=== PATIENT | female | born 1970 | race Asian ===

== ENCOUNTER 2018-06-22 13:16 | Outpatient (CLI) | payer OTHER ==
--- NOTE | 2018-06-22 15:57 | ULT ---
RIGHT BREAST ULTRASOUND: 06/22/18 HISTORY: Palpable mass in the right breast. FINDINGS: Correlation is made with mammogram same date. There is a 2.8 x 2.2 x 4 cm cyst at the 2 o'clock position, 3 cm from the nipple corresponding to the mammographic finding and palpable abnormality. IMPRESSION: BIRADS 2: Benign Finding(s) Routine annual screening mammography (for women over age 40). POS: OFF
--- NOTE | 2018-06-23 09:01 | MMO ---
MAMMOGRAM FINDINGS: There is a mass in the right breast correswponding to palpable abnormality. Ultrasound of the palpable finding was shown to be a 4 cm cyst (2:00). There are no suspicious masses, calcifications or areas of architectural distortion. IMPRESSION: FINDING IN THE RIGHT BREAST IS BENIGN. A ROUTINE FOLLOW-UP MAMMOGRAM IN 1 YEAR IS RECOMMENDED. ACR BI-RADS Category 2 - Benign finding
== END 2018-06-22 13:17 | disposition home or self-care (01) ==
LOC: BICMAMMO 13:16
PROVIDERS: ATTEND Advanced Practice Midwife
DX: N64.4 Mastodynia (principal); N63.12 Unspecified lump in the right breast, upper inner quadrant
CPT/HCPCS: 77066; G0279

== ENCOUNTER 2019-09-06 10:02 | Outpatient (CLI) | payer OTHER ==
--- NOTE | 2019-09-06 10:53 | MMO ---
Bilateral MAMMO Bilat Diag [facility]. CLINICAL HISTORY: Patient is 49 years old and is seen for diagnostic exam and lump or thickening in the right breast. The patient has no family history of breast cancer. The patient has no personal history of cancer. VIEWS: The views performed were: bilateral craniocaudal with tomosynthesis; bilateral mediolateral oblique with tomosynthesis; and bilateral mediolateral with tomosynthesis. FILMS COMPARED: The present examination has been compared to prior imaging studies performed at [facility] on 06/22/2018 and 09/06/2019. This study has been interpreted with the assistance of computer-aided detection. MAMMOGRAM FINDINGS: The breasts are extremely dense, which may lower the sensitivity of mammography. There are multiple similar oval masses with obscured margins seen in both breasts. The large right cyst seen previously is smaller/resolved. Simple cyst is present in the region of palpable concern sonographically. There are no suspicious masses, suspicious calcifications, or new areas of architectural distortion. IMPRESSION: THERE IS NO MAMMOGRAPHIC EVIDENCE OF MALIGNANCY. A ROUTINE FOLLOW-UP MAMMOGRAM IN 1 YEAR IS RECOMMENDED. THE RESULTS OF THIS EXAM WERE SENT TO THE PATIENT. ACR BI-RADS Category 2 - Benign finding MAMMOGRAPHY NOTE: 1. A negative mammogram report should not delay a biopsy if a dominant of clinically suspicious mass is present. 2. Approximately 10% to 15% of breast cancers are not detected by mammography. 3. Adenosis and dense breasts may obscure an underlying neoplasm. Reported by: LUPILLO RIOS MD Electonically Signed: [id number]
--- NOTE | 2019-09-06 11:04 | MMO ---
Right US Breast Limited Rt. CLINICAL HISTORY: Patient is 49 years old and is seen for . VIEWS: The views performed were: . FILMS COMPARED: The present examination has been compared to prior imaging studies performed at [facility] on 06/22/2018 and 09/06/2019. This study has been interpreted with the assistance of computer-aided detection. RIGHT BREAST ULTRASOUND FINDINGS: There is a simple cyst measuring 17 millimeters seen in the right breast at 2 o'clock. On ultrasound, no suspicious findings are identified. IMPRESSION: THERE IS NO MAMMOGRAPHIC EVIDENCE OF MALIGNANCY. A ROUTINE FOLLOW-UP MAMMOGRAM IN 1 YEAR IS RECOMMENDED. THE RESULTS OF THIS EXAM WERE SENT TO THE PATIENT. ACR BI-RADS Category 2 - Benign finding MAMMOGRAPHY NOTE: 1. A negative mammogram report should not delay a biopsy if a dominant of clinically suspicious mass is present. 2. Approximately 10% to 15% of breast cancers are not detected by mammography. 3. Adenosis and dense breasts may obscure an underlying neoplasm. Reported by: LUPILLO RIOS MD Electonically Signed: [id number]
== END 2019-09-06 10:03 | disposition home or self-care (01) ==
LOC: BICMAMMO 10:02
PROVIDERS: ATTEND Nurse Practitioner Women's Health
DX: N63.10 Unspecified lump in the right breast, unspecified quadrant (principal)
CPT/HCPCS: 77066; G0279